=== PATIENT | female | born 1995 | race Caucasian/White ===

== ENCOUNTER 2023-01-28 12:25 | Emergency (ER) | payer OTHER ==
[2023-01-28 12:39] VITALS: TEMP 98.4; BMI 23.0
[2023-01-28] MEDS ORDERED: FAMOTIDINE 20 MG TABLET PO ONE (13:17)
[2023-01-28] MEDS ORDERED: MAG HYDROX/AL HYDROX/SIMETH 30 ML UNIT-DOSE CUP PO ONE (13:25)
[2023-01-28] MEDS ORDERED: FAMOTIDINE 20 MG TABLET ONE (13:28)
[2023-01-28] MEDS ORDERED: MAG HYDROX/AL HYDROX/SIMETH 30 ML UNIT-DOSE CUP ONE (13:28)
[2023-01-28 13:43] LABS: HEMATOCRIT 42.4 % (32.4-45.2); HEMOGLOBIN 14.6 GM/dL (10.7-15.3); MCH 30.6 pg (25.7-33.7); MCHC 34.3 g/dl (32.0-36.0); MEAN PLT VOLUME 8.1 fl (7.5-11.1); PLATELET COUNT 355 10^3/uL (134-434); RBC 4.77 M/mm3 (3.60-5.2); RDW 13.6 % (11.6-15.6); WHITE BLOOD COUNT 9.6 K/mm3 (4.0-10.0)
[2023-01-28 13:56] LABS: CALCIUM 9.6 mg/dL (8.5-10.1)
[2023-01-28 13:57] LABS: BLOOD UREA NITROGEN 13.6 mg/dL (7-18)
[2023-01-28 14:00] LABS: CREATININE 0.8 mg/dL (0.55-1.3)
[2023-01-28 14:02] LABS: BILIRUBIN,TOTAL 0.5 mg/dL (0.2-1); TOT PROT 7.8 g/dl (6.4-8.2)
[2023-01-28 16:36] VITALS: BP 113/70; PULSE 64; RESP 18
== END 2023-01-28 16:35 | disposition home or self-care (01) ==
LOC: JER 12:25
DX: R06.02 Shortness of breath (principal)
CPT/HCPCS: 36415; 71046-TC-FY; 80053; 82375; 84703; 85027; 93005; 93010; 99285-25